=== PATIENT | female | born 1950 | race Asian ===

== ENCOUNTER 2021-02-01 09:42 | Emergency (ER) | payer MEDICARE ==
[~2021-02-01] VITALS: Ht 157.5 cm; Wt 72.7 kg
[2021-02-01] MEDS ORDERED: AMLO-258 PO (09:48)
[2021-02-01] MEDS ORDERED: LISI-894 PO (09:48)
[2021-02-01] MEDS ORDERED: ATOR40TA28 PO (09:48)
[2021-02-01] MEDS ORDERED: CLINDAMYCIN HCL 150 MG CAPSULE PO ONE (10:15)
[2021-02-01] MEDS ORDERED: PROPARACAINE HCL 0.5% 15 ML OPHTHALMIC SOLUTION OD ONE (10:15)
[2021-02-01] MEDS ORDERED: FLUORESCEIN SODIUM 1 MG STRIP OD ONE (10:15)
[2021-02-01] MEDS ORDERED: ValACYclovir HCL 500 MG TABLET PO ONE (10:15)
[2021-02-01 11:20] VITALS: BP 110/59
== END 2021-02-01 11:27 | disposition home or self-care (01) ==
LOC: EMS 09:49
DX: L03.213 Periorbital cellulitis (principal); B02.9 Zoster without complications; I10 Essential (primary) hypertension; E78.00 Pure hypercholesterolemia, unspecified
CPT/HCPCS: 99284; Z7502; Z7610